=== PATIENT | female | born 1965 | race Hispanic/Latino ===

== ENCOUNTER 2018-12-02 14:42 | Emergency (ER) | payer OTHER ==
[2018-12-02] MEDS ORDERED: ONDANSETRON ODT 4 MG TAB ONE (15:28)
[2018-12-02] MEDS ORDERED: HYDROCODONE/ACETAMINOPHEN 5/325 MG TAB ONE (15:29)
== END 2018-12-02 16:39 | disposition home or self-care (01) ==
LOC: EDH 14:42
DX: M25.531 Pain in right wrist (principal)
CPT/HCPCS: 73110